=== PATIENT | male | born 1965 | race Hispanic/Latino ===

== ENCOUNTER 2017-11-20 23:21 | Inpatient (IN) | payer MEDICAID ==
[2017-11-20 23:33] VITALS: BMI 24.0
--- NOTE | 2017-11-20 23:39 | ED PDOC ---
Arrival/HPI - General Chief Complaint: Psychiatric Evaluation Time Seen by Provider: 11/20/17 23:34 Historian: Patient - History of Present Illness Narrative History of Present Illness (Text): 11/20/17 23:37 52 year old male, whose past medical history includes bipolar disorder/ depression, presents to the emergency department for transfer from [facility] for psych admission. Patient denies any somatic complaints. Patient denies any suicidal ideation or homicidal ideation currently. Patient denies any fever, chills, chest pain, shortness of breath, nausea, vomiting, diarrhea, urinary symptoms, back pain, neck pain, headache, dizziness, or any other complaints. Symptom Onset: Gradual Activities at Onset: Light Context: Other (Transfer) Past Medical History - Provider Review Nursing Documentation Reviewed: Yes - Infectious Disease Hx of Infectious Diseases: None Family/Social History - Physician Review Nursing Documentation Reviewed: Yes Family/Social History: No Known Family HX Allergies/Home Meds Allergies/Adverse Reactions: Allergies chlorpromazine [From Thorazine] Adverse Reaction (Verified 11/20/17 23:39) SHORTNESS OF BREATH haloperidol [From Haldol] Adverse Reaction (Verified 11/20/17 23:39) RASH risperidone [From Risperdal] Adverse Reaction (Verified 11/20/17 23:39) RASH Home Medications: Home Meds Medication Instructions Recorded Confirmed Unobtainable 11/20/17 11/20/17 Review of Systems - Physician Review All systems were reviewed & negative as marked: Yes - Review of Systems Constitutional: absent: Fevers, Other (Chills) Respiratory: absent: SOB Cardiovascular: absent: Chest Pain Musculoskeletal: absent: Back Pain, Neck Pain Neurological: absent: Headache, Dizziness Psychiatric: absent: Suicidal Ideation (homicidal Ideation) Physical Exam Vital Signs Reviewed: Yes Vital Signs Temp Pulse Resp BP Pulse Ox 11/20/17 23:34 98.0 F 89 18 110/67 98 11/20/17 23:33 98.3 F 79 18 110/67 95 Temperature: Afebrile Blood Pressure: Normal Pulse: Regular Respiratory Rate: Normal Appearance: Positive for: Well-Appearing, Non-Toxic, Comfortable Pain Distress: None Mental Status: Positive for: Alert and Oriented X 3 - Systems Exam Head: Present: Atraumatic, Normocephalic Pupils: Present: PERRL Extroacular Muscles: Present: EOMI Conjunctiva: Present: Normal Mouth: Present: Moist Mucous Membranes Neck: Present: Normal Range of Motion Respiratory/Chest: Present: Clear to Auscultation, Good Air Exchange. No: Respiratory Distress, Accessory Muscle Use Cardiovascular: Present: Regular Rate and Rhythm, Normal S1, S2. No: Murmurs Abdomen: No: Tenderness, Distention, Peritoneal Signs Back: Present: Normal Inspection Upper Extremity: Present: Normal Inspection. No: Cyanosis, Edema Lower Extremity: Present: Normal Inspection. No: Edema Neurological: Present: GCS=15, CN II-XII Intact, Speech Normal Skin: Present: Warm, Dry, Normal Color. No: Rashes Psychiatric: Present: Alert, Oriented x 3, Normal Insight, Normal Concentration Medical Decision Making ED Course and Treatment: 11/20/17 23:44 Impression: 52 year old male presents for transfer from [facility] for psych admission. Plan: -- ED Admission -- Reassess and disposition Progress Notes: Patient accepted to psych floor. - Scribe Statement The provider has reviewed the documentation as recorded by the Dorisibe Teresita Bergeron Provider Scribe Attestation: All medical record entries made by the Scribe were at my direction and personally dictated by me. I have reviewed the chart and agree that the record accurately reflects my personal performance of the history, physical exam, medical decision making, and the department course for this patient. I have also personally directed, reviewed, and agree with the discharge instructions and disposition. Disposition/Present on Arrival - Present on Arrival Any Indicators Present on Arrival: No History of DVT/PE: No History of Uncontrolled Diabetes: No Urinary Catheter: No History of Decub. Ulcer: No History Surgical Site Infection Following: None - Disposition Have Diagnosis and Disposition been Completed?: Yes Diagnosis: Depression, Suicidal ideation Disposition: HOSPITALIZED Disposition Time: 23:53 Condition: STABLE Forms: [employer] (Uzbek)
[2017-11-21 00:24] VITALS: O2SAT 100
--- NOTE | 2017-11-21 04:29 | PCM.BM ---
<Diamond Keene - Last Filed: 11/21/17 04:28> Treatment Plan Problems - Problems identified on initial assessmt suicidal ideation Date Initiated: 11/21/17 Time Initiated: 00:40 Assessment reference: NA Status: Active <MandielilaemilylucretiaGiorgiRekha Kendra - Last Filed: 11/21/17 08:05> - Diagnosis (1) Schizoaffective disorder Status: Acute Interventions: 11/21/17 08:05 Psychoeducation/psychotherapy Psychopharmacology/adjustment of medications as needed/ monitoring possible side effects Evaluate pt on daily basis Compliance with medications and follow up appointments Long acting medication if pt is noncompliant with pill form Suicide and homicide risk assessment and prevention, coping strategies, safety plan Relapse prevention Reduction of symptoms Improve functional status Possible assertive community treatment Cognitive behavioral therapy Family involvement Possible social skill training as outpatient (2) Polysubstance abuse Status: Acute Interventions: 11/21/17 08:05 Monitoring withdrawal symptoms Medical detoxification Pharmacotherapy for alcohol/benzos/opioid dependence Maintaining sobriety Relapse prevention Possible rehabilitation Motivational interviewing 12-step programs: AA meetings
[2017-11-21 09:00] LABS: BASO # 0.05 K/mm3 (0.0-2.0); BASO % 0.9 % (0.0-3.0); EOS # 0.3 (0.0-0.7); EOS % 5.9 % (1.5-5.0); GRAN # 2.32 (1.4-6.5); GRAN % 40.4 % (50.0-68.0); LYMPH # 2.7 (1.2-3.4); LYMPH % 47.1 % (22.0-35.0); MEAN CORPUSCULAR HEMOGLOBIN 31.7 pg (25.0-35.0); MEAN CORPUSCULAR HGB CONC 33.3 g/dl (31.0-37.0); MEAN PLATELET VOLUME 10.4 fl (7.0-11.0); MONO # 0.3 (0.1-0.6); MONO % 5.7 % (1.0-6.0); RBC 4.42 10^6/uL (3.5-6.1); RED CELL DISTRIBUTION WIDTH 13.2 % (11.5-14.5); WHITE BLOOD COUNT 5.8 10^3/ul (4.5-11.0)
[2017-11-21 09:05] LABS: BLOOD UREA NITROGEN 11 mg/dL (7-21); CALCIUM 9.9 mg/dL (8.4-10.5); GFR NON-AFRICAN AMERICAN > 60
--- NOTE | 2017-11-21 09:34 | PCM.PSYCH ---
Initial Psychiatric Evaluation - Initial Psychiatric Evaluation Type of Admission: Voluntary Legal Status: Capacity (Patient has capacity to sign consent for treatment) Chief Complaint (in patient's own words): "my nephew , I was feeling very depressed, I thought to jump in front of the care, I've got scared and brought myself to the hospital, I did not take medications because of insurance confusion I thought that I have no coverage, but now I've got to know that my medicaid is active...." Patient's Reaction to Hospitalization: pt was transferred from the [facility] at [place] for evaluation and stabilization of depressive symptoms, possible suicidal ideation with the plan to jump in front of the car, pt was willing to get treatment, voluntary admitted. History of Present Illness and Precipitating Events: Shortly pt is 52 year old Val Male, whose past medical history includes bipolar disorder/depression, polysubstance abuse and dependence, h/o multiple psychiatric admissions, multiple suicidal attempts, pt also has h/o polysubstance abuse and dependence, h/o noncompliance with medications and follow up appts, pt currently homeless, multiple medical issues including HIV, Hep C, was transferred from the [facility] at [place] for evaluation of depressive symptoms, inability to function, pt was feeling hopeless and helpless , was not taking meds since October 29 due to insurance problems, pt expressed thoughts of harming self with the plan to walk into the traffic or jump in front of the car, pt requires further evaluation/stabilization/observation in psychiatric inpatient unit, medication resumption. Transfer from [facility] was uneventful. pt was seen and examined, discussed with RNs, chart reviewed, labs reviewed, vitals reviewed. Medical/ID consult called because pt said that he wants to be resumed on his HIV medications. pt was seen at the treatment team room, pt presented with acceptable personal hygiene, looks younger than chronological age, good ADLs. pt said he was noncompliant with meds since 2017 due to insurance confusion. pt said as a result he became very depressed, hopeless and helpless, pt said he started to hear "voices in my head"in [facility] pt said that voices are telling him to end up his life, during denied paranoia "I relapsed on drugs because I wanted to feel better", pt said that he was snorting and shooting IV of Heroin 5 bags a day and Cocaine 1gramm a day, alcohol 6packs of beer a day, pt said last use of drugs was , November 18. pt said "I feel okay now, no withdrawals, I was detoxed in other hospital", pt said he smokes about a pack a day, counseling provided, nicotine patch offered, pt refused. pt also uses marihuana daily. pt said he had suicidal thoughts that is why he came to the hospital, looking for help. pt said the main reason for his symptoms is "I lost about 13 people since 1998" , last straw was my nephew last winter, he of throat cancer. pt said that he had been diagnosed with "panic disorder, anxiety, bipolar and voices", h/o substance abuse. pt did not want to disclose any h/o abuse. Past psychiatric h/o: pt reported multiple suicidal attemtps since 1979, pt has h/o jumped from the window, ending up breaking his leg and tried to walk throught traffic as well. pt was responding well to Seroquel "100mg at the morning and 200mg at night", and "remeron was 15mg". h/o multiple detoxes and rehabs but "always relapse". family h/o: "I was adopted at age of 5days", pt said his adoptive family was "very nice to me". pt said that he never knew the blood relatives. Labs [facility]: WBC :14.2, Hb: 13.1, AST85, ALT 89. 11/21/17 08:30 11/21/17 08:30 Lab Results 11/21/17 08:30: WBC 5.8, RBC 4.42, Hgb 14.0, Hct 42.0, MCV 95.0, MCH 31.7, MCHC 33.3, RDW 13.2, Plt Count 340, MPV 10.4, Gran % 40.4 L, Lymph % (Auto) 47.1 H, [place] % (Auto) 5.7, Eos % (Auto) 5.9 H, Baso % (Auto) 0.9, Gran # 2.32, Lymph # ( Auto) 2.7, [place] # (Auto) 0.3, Eos # (Auto) 0.3, Baso # (Auto) 0.05 11/21/17 08:30: Sodium 142, Potassium 4.3, Chloride 108 H, Carbon Dioxide 25, Anion Gap 13, BUN 11, Creatinine 1.1, Est GFR ( Amer) > 60, Est GFR (Non- Af Amer) > 60, Random Glucose 142 H, Calcium 9.9 Vital Signs Temp Pulse Resp BP Pulse Ox 11/21/17 01:57 98.0 F 93 H 18 120/90 11/21/17 00:10 98 F 88 18 112/70 100 11/20/17 23:34 98.0 F 89 18 110/67 98 11/20/17 23:33 98.3 F 79 18 110/67 95 Current Medications: Active Medications Generic Name Dose Route Start Last Admin Trade Name Freq PRN Reason Stop Dose Admin Acetaminophen 650 mg 11/21/17 01:47 Tylenol 325mg Tab PO Q4H PRN Pain, Mild (1-3) Lorazepam 2 mg 11/21/17 01:21 Ativan PO Q6 PRN Agitation Protocol Lorazepam 2 mg 11/21/17 01:25 Ativan IM Q6H PRN Agitation Protocol Mirtazapine 15 mg 11/21/17 22:00 Remeron PO HS BROOK Quetiapine Fumarate 100 mg 11/21/17 22:00 Seroquel PO HS BROOK Protocol Ziprasidone 20 mg 11/21/17 01:10 Geodon Cap PO Q6 PRN Agitation Protocol Ziprasidone 20 mg 11/21/17 01:26 Geodon Inj IM Q6 PRN Agitation Protocol Past Psychiatric History - Past Psychiatric History Previous Treatment History: Inpatient Prior Professional Help: see HPI Prior Psychiatric Treatment: see HPI At what hospital: see HPI Duration: see HPI Nature of Treatment: see HPI Explanation of prior treatment: see HPI History of Abuse: see HPI History of ETOH/Drug Use: see HPI History of Family Illness: see HPI Pertinent Medical Hx (Current Medical&Sleep Prob, Allergies): Allergies Allergy/AdvReac Type Severity Reaction Status Date / Time chlorpromazine AdvReac SHORTNESS Verified 11/20/17 23:39 [From Thorazine] OF BREATH haloperidol [From Haldol] AdvReac RASH Verified 11/20/17 23:39 risperidone [From Risperdal] AdvReac RASH Verified 11/20/17 23:39 Unobtainable 11/20/17 Review of Systems - Review of Systems Systems not reviewed;Unavailable: Acuity of Condition - EENT Eyes: As Per HPI Ears: As Per HPI Nose/Mouth/Throat: As Per HPI - Cardiovascular Cardiovascular: As Per HPI - Respiratory Respiratory: As Per HPI - Gastrointestinal Gastrointestinal: As Per HPI - Genitourinary Genitourinary: As Per HPI - Reproductive: Male Reproductive:Male: As Per HPI - Musculoskeletal Musculoskeletal: As Par HPI - Integumentary Integumentary: As Per HPI - Neurological Neurological: As Per HPI - Psychiatric Psychiatric: As Per HPI - Endocrine Endocrine: As Per HPI - Hematologic/Lymphatic Hematologic: As Per HPI Mental Status Examination - Personal Presentation Personal Presentation: Looks younger than stated age - Affect Affect: Constricted - Motor Activity Motor Activity: Calm - Reliability in Providing Information Reliability in Providing Information: Fair - Speech Speech: Organized - Mood Mood: Depressed, Anxious - Formal Thought Process Formal Thought Process: Hallucinations (but could be his own thoughts) - Hallucinations/Delusions Hallucinations: Auditory (self reported, but thought process is goal directed, no signs of psychosis) - Obsessions/Compulsions Obsessions: None Compulsions: None - Cognitive Functions Orientation: Person, Place Sensorium: Alert Attention/Concentration: Easily distracted Abstract Thinking: [place] Estimate of Intelligence: Average Judgement: Intact, as evidence by: Insight regarding need for hospitalization - Risk Risk: Withdrawal, Diminished functioning - Strength & Assets Inventory Strength & Assets Inventory: Employment history (h/o working as a chief-cooker) , Cooperative, Other (good insight, looking for help, no acute psychosis) - Limitations Limitations: Other (multiple medical issues, active use drugs, homelessness, mental illness, h/o sucididal attempts) DSM 5 DX - DSM 5 DSM 5 Diagnosis: as per h/obipolar disorder r/o MDD recurrent, severe with psychosis opioid use disorder marijuana use disorder alcohol use disorder - Recommended/Plan of Treatment Treatment Recommendations and Plan of Treatment: Milieu/structure/supportive therapy Medical consult as well as ID consult initiated consultation for discharge plan and social issues Med management seroquel resumed remeron resumed PRN meds MVI, thiamine and folic acid initiated Family involvement Follow up on labs Will monitor closely Pt was educated about risk/benefits and alternatives of medications, coping strategies (safety plan, suicide prevention), relapse prevention, importance of follow up with psychiatrist and therapist, stay away from drugs/alcohol/smoking Projected ELOS: 7days Prognosis: guarded Discharge Plan and Discharge Criteria: Pt will be not depressed or manic, will be more hopeful, will be not psychotic or anxious, will be not having thoughts of harming self or others, will be tolerating medications well, will not have major side effects, will be able to function, will not pose threat to self or others. - Smoking Cessation Smoking Cessation Initiated: No Reason for not providing: offered, but pt refused
[2017-11-21] MEDS: Multivitamin With Minerals Tab PO SCH (12:15)
--- NOTE | 2017-11-21 22:26 | CON ---
DATE: 11/21/2017 The patient seen in the Psychiatric Floor. CHIEF COMPLAINT: Positive HIV and positive hep C. HISTORY OF PRESENT ILLNESS: This is a 52-year-old male with history of intravenous drug abuse and history of positive HIV who is followed by Dr. Burns in [facility] in [place] [facility]. he is on undetectable viral load and T-cells are 700. He also has a hepatitis C, who is not being treated for his hepatitis C, he was admitted to the Psychiatric Floor with diagnosis of bipolar disorder and questionable suicidal ideation. REVIEW OF SYSTEMS: At this point, a 12-point review of systems is performed and patient has no fevers, no headaches, no nausea or vomiting. PAST MEDICAL HISTORY: Significant for HIV, hepatitis C, bipolar and substance abuse. PAST SURGICAL HISTORY: Noncontributory. ALLERGIES: THE PATIENT HAS ALLERGIES TO CHLORPROMAZINE, HALDOL AND RISPERIDONE. MEDICATIONS: HIV medications include Biktarvy. PHYSICAL EXAMINATION GENERAL: He is in bed. VITAL SIGNS: He had a temperature of 98, blood pressure is 120/70, respiratory rate of 18. HEENT: Unremarkable. NECK: Supple. LUNGS: Decreased breath sounds. HEART: Normal S1, S2. ABDOMEN: Soft, nontender. No organomegaly. No rebound. LABORATORY EXAMINATION: Reveals white count of 5.8. Hemoglobin of 14 and chemistries are noted with glucose of 142. ASSESSMENT: This is a 52-year-old male with intravenous drug abuse, human immunodeficiency virus, and hepatitis C. #1 is Human immunodeficiency virus, here with suicidal ideation and bipolar and hepatitis C. Would continue at [facility] and follow up at [facility] with Dr. Eric Burns and should have hepatitis C workup and treatment. Derian Monreal MD
[2017-11-22 03:49] LABS: PH,URINE 8.5 (4.7-8.0); URINE BILIRUBIN NEGATIVE (NEGATIVE); URINE BLOOD NEGATIVE (NEGATIVE); URINE GLUCOSE (UA) NEGATIVE (NEGATIVE); URINE LEUKOCYTE ESTERASE NEGATIVE Leu/uL (NEGATIVE); URINE PROTEIN TRACE mg/dL (<30 mg/dL)
[2017-11-22 03:51] LABS: URINE APPEARANCE CLEAR (CLEAR); URINE COLOR YELLOW (YELLOW)
[2017-11-22 04:00] LABS: URINE EPITHELIAL CELLS 0 - 2 /hpf (0-5); URINE TRIPLE PHOSPHATE CRYSTAL OCC /hpf; URINE WBC 0 - 2 /hpf (0-6)
--- NOTE | 2017-11-22 06:44 | CP.PCM.CON ---
History of Present Illness - History of Present Illness History of Present Illness: Medical Consult note for Hospitalist Dr. Elaina Hope PGY2 52 year old male, whose past medical history includes bipolar disorder/ depression, presents to the emergency department for transfer from [facility]. As per patient he had recent suicidal ideation with a plan to jump in front of a car due to his nephew recently passing away. Patient states at the time he couldn't take his medications due to insurance issues. Medicine was consulted due to patient's history of HIV and Hep C. Patient was evaluated and offered no complaints. As per patient, he is compliant with his HIV medications and has an undetectable viral load. In regards to his Hepatitis C, it has not been treated as of yet because patient is still waiting to complete his series of hepatitis B vaccinations. However once those are completed he will begin treatment for hepatitis C. 12-point ROS obtained, otherwise neg as per patient. Past Patient History - Infectious Disease Hx of Infectious Diseases: None - Past Social History Smoking Status: Light Smoker < 10 Cigarettes Daily - HEMATOLOGICAL/ONCOLOGICAL Hx Hepatitis C: Yes Hx Human Immunodeficiency Virus (HIV): Yes - PSYCHIATRIC Hx Bipolar Disorder: Yes Hx Substance Use: Yes - SURGICAL HISTORY Hx Surgeries: No - ANESTHESIA Hx Anesthesia: No Meds Allergies/Adverse Reactions: Allergies Allergy/AdvReac Type Severity Reaction Status Date / Time chlorpromazine AdvReac SHORTNESS Verified 11/20/17 23:39 [From Thorazine] OF BREATH haloperidol [From Haldol] AdvReac RASH Verified 11/20/17 23:39 risperidone [From Risperdal] AdvReac RASH Verified 11/20/17 23:39 - Medications Medications: Current Medications Acetaminophen (Tylenol 325mg Tab) 650 mg PO Q4H PRN PRN Reason: Pain, Mild (1-3) Clonidine HCl (Catapres) 0.1 mg PO BID PRN PRN Reason: opioid withdrawals Last Admin: 11/21/17 22:10 Dose: 0.1 mg Folic Acid (Folic Acid) 1 mg PO DAILY BROOK Last Admin: 11/21/17 12:16 Dose: 1 mg Lorazepam (Ativan) 2 mg PO Q6 PRN; Protocol PRN Reason: Agitation Last Admin: 11/21/17 22:11 Dose: 2 mg Lorazepam (Ativan) 2 mg IM Q6H PRN; Protocol PRN Reason: Agitation Mirtazapine (Remeron) 15 mg PO HS ON LICENSE OF [facility] Last Admin: 11/21/17 22:11 Dose: 15 mg Multivitamins/Minerals (Therapeutic-M Tab) 1 tab PO DAILY ON LICENSE OF [facility] Last Admin: 11/21/17 12:15 Dose: 1 tab Quetiapine Fumarate (Seroquel) 100 mg PO HS ON LICENSE OF [facility] PRN Reason: Protocol Last Admin: 11/21/17 22:11 Dose: 100 mg Thiamine HCl (Vitamin B1 Tab) 100 mg PO DAILY ON LICENSE OF [facility] Last Admin: 11/21/17 12:16 Dose: 100 mg Tramadol HCl (Ultram) 50 mg PO TID PRN PRN Reason: severe pain >=8/10 Ziprasidone (Geodon Cap) 20 mg PO Q6 PRN; Protocol PRN Reason: Agitation Ziprasidone (Geodon Inj) 20 mg IM Q6 PRN; Protocol PRN Reason: Agitation Physical Exam - Constitutional Appears: Non-toxic - Head Exam Head Exam: ATRAUMATIC, NORMAL INSPECTION, NORMOCEPHALIC - Eye Exam Eye Exam: EOMI, Normal appearance - ENT Exam ENT Exam: Mucous Membranes Moist - Neck Exam Neck exam: Positive for: Normal Inspection - Respiratory Exam Respiratory Exam: Clear to Auscultation Bilateral, NORMAL BREATHING PATTERN - Cardiovascular Exam Cardiovascular Exam: REGULAR RHYTHM, +S1, +S2 - GI/Abdominal Exam GI & Abdominal Exam: Normal Bowel Sounds, Soft - Extremities Exam Extremities exam: Positive for: normal inspection - Back Exam Back exam: NORMAL INSPECTION - Neurological Exam Neurological exam: Alert, CN II-XII Intact, Oriented x3 - Psychiatric Exam Psychiatric exam: Normal Affect, Normal Mood - Skin Skin Exam: Intact, Normal Color, Warm Results - Vital Signs Recent Vital Signs: Last Vital Signs Temp 98.0 F 11/21/17 01:57 Pulse 65 11/21/17 22:10 Resp 18 11/21/17 01:57 BP 96/66 L 11/21/17 22:10 Pulse Ox 100 11/21/17 00:10 - Labs Result Diagrams: 11/21/17 08:30 11/21/17 08:30 Labs: Laboratory Results - last 24 hr 11/21/17 11/21/17 11/21/17 07:00 08:30 08:30 WBC 5.8 RBC 4.42 Hgb 14.0 Hct 42.0 MCV 95.0 MCH 31.7 MCHC 33.3 RDW 13.2 Plt Count 340 MPV 10.4 Gran % 40.4 L Lymph % (Auto) 47.1 H [place] % (Auto) 5.7 Eos % (Auto) 5.9 H Baso % (Auto) 0.9 Gran # 2.32 Lymph # (Auto) 2.7 Craig # (Auto) 0.3 Eos # (Auto) 0.3 Baso # (Auto) 0.05 Sodium 142 Potassium 4.3 Chloride 108 H Carbon Dioxide 25 Anion Gap 13 BUN 11 Creatinine 1.1 Est GFR ( Amer) > 60 Est GFR (Non-Af Amer) > 60 Random Glucose 142 H Calcium 9.9 TSH 3rd Generation 1.70 Urine Color Urine Appearance Urine pH Ur Specific [place] Urine Protein Urine Glucose (UA) Urine Ketones Urine Blood Urine Nitrate Urine Bilirubin Urine Urobilinogen Ur Leukocyte Esterase Urine RBC Urine WBC Ur Epithelial Cells Triple Phos Crystals 11/22/17 00:38 WBC RBC Hgb Hct MCV MCH MCHC RDW Plt Count MPV Gran % Lymph % (Auto) [place] % (Auto) Eos % (Auto) Baso % (Auto) Gran # Lymph # (Auto) [place] # (Auto) Eos # (Auto) Baso # (Auto) Sodium Potassium Chloride Carbon Dioxide Anion Gap BUN Creatinine Est GFR ( Amer) Est GFR (Non-Af Amer) Random Glucose Calcium TSH 3rd Generation Urine Color Yellow Urine Appearance Clear Urine pH 8.5 Ur Specific [place] 1.015 Urine Protein Trace H Urine Glucose (UA) Negative Urine Ketones Trace H Urine Blood Negative Urine Nitrate Negative Urine Bilirubin Negative Urine Urobilinogen 1.0 H Ur Leukocyte Esterase Negative Urine RBC 1 - 3 Urine WBC 0 - 2 Ur Epithelial Cells 0 - 2 Triple Phos Crystals Occ Assessment & Plan - Assessment and Plan (Free Text) Assessment: 52 M with history of HIV and hepatitis C presenting with depression and past suicidal ideation. Plan: HIV -Continue medical managament with HAART therapy -Further management as per ID Hepatitis C -Liver enzymes within normal range as [facility] -Patient is cleared from a medical standpoint Case discussed and reviewed with Dr. Delaney
[2017-11-22 07:14] VITALS: RESP 20
--- NOTE | 2017-11-22 08:20 | PCM.PSYCH ---
Initial Psychiatric Evaluation - Initial Psychiatric Evaluation Type of Admission: Voluntary Legal Status: Capacity (Patient has capacity to sign consent for treatment) Chief Complaint (in patient's own words): "The voices are mas and telling me to kill people" Current Medications: Active Medications Generic Name Dose Route Start Last Admin Trade Name Freq PRN Reason Stop Dose Admin Acetaminophen 650 mg 11/21/17 01:47 Tylenol 325mg Tab PO Q4H PRN Pain, Mild (1-3) Clonidine HCl 0.1 mg 11/21/17 08:03 11/21/17 22:10 Catapres PO 0.1 mg BID PRN Administration opioid withdrawals Folic Acid 1 mg 11/21/17 09:45 11/21/17 12:16 Folic Acid PO 1 mg DAILY BROOK Administration Lorazepam 2 mg 11/21/17 01:21 11/21/17 22:11 Ativan PO 2 mg Q6 PRN Administration Agitation Protocol Lorazepam 2 mg 11/21/17 01:25 Ativan IM Q6H PRN Agitation Protocol Mirtazapine 15 mg 11/21/17 22:00 11/21/17 22:11 Remeron PO 15 mg HS BROOK Administration Multivitamins/Minerals 1 tab 11/21/17 09:45 11/21/17 12:15 Therapeutic-M Tab PO 1 tab DAILY BROOK Administration Quetiapine Fumarate 100 mg 11/21/17 22:00 11/21/17 22:11 Seroquel PO 100 mg HS BROOK Administration Protocol Thiamine HCl 100 mg 11/21/17 09:45 11/21/17 12:16 Vitamin B1 Tab PO 100 mg DAILY BROOK Administration Tramadol HCl 50 mg 11/21/17 08:03 Ultram PO TID PRN severe pain >=8/10 Ziprasidone 20 mg 11/21/17 01:10 Geodon Cap PO Q6 PRN Agitation Protocol Ziprasidone 20 mg 11/21/17 01:26 Geodon Inj IM Q6 PRN Agitation Protocol Past Psychiatric History - Past Psychiatric History Previous Treatment History: Inpatient Prior Professional Help: see HPI Prior Psychiatric Treatment: see HPI At what hospital: see HPI Duration: see HPI Nature of Treatment: see HPI Explanation of prior treatment: see HPI Pertinent Medical Hx (Current Medical&Sleep Prob, Allergies): Allergies Allergy/AdvReac Type Severity Reaction Status Date / Time chlorpromazine AdvReac SHORTNESS Verified 11/20/17 23:39 [From Thorazine] OF BREATH haloperidol [From Haldol] AdvReac RASH Verified 11/20/17 23:39 risperidone [From Risperdal] AdvReac RASH Verified 11/20/17 23:39 No Known Home Med 11/21/17
[2017-11-22] MEDS: Multivitamin With Minerals Tab PO SCH (09:37)
--- NOTE | 2017-11-22 16:09 | PCM.PYCHPN ---
Psychiatric Progress Note - Psychiatric Progress Note Patient seen today, length of contact: 30min Patient Chief Complaint: "I feel better" Problems Identified/Issues Discussed: Suicide/ homicide prevention, past psychiatric h/o, current psychiatric symptoms , medical problems, risk/benefits and alternatives of medications, medications compliance, coping strategies, substance abuse h/o, relapse prevention, importance of follow up with psychiatrist and therapist, discharge plan. Medical Problems: see HPI HIV Hep C Diagnostic Results: 11/21/17 08:30 11/21/17 08:30 Lab Results 11/22/17 00:38: Urine Color Yellow, Urine Appearance Clear, Urine pH 8.5, Ur Specific [place] 1.015, Urine Protein Trace H, Urine Glucose (UA) Negative, Urine Ketones Trace H, Urine Blood Negative, Urine Nitrate Negative, Urine Bilirubin Negative, Urine Urobilinogen 1.0 H, Ur Leukocyte Esterase Negative, Urine RBC 1 - 3, Urine WBC 0 - 2, Ur Epithelial Cells 0 - 2, Triple Phos Crystals Occ 11/21/17 08:30: WBC 5.8, RBC 4.42, Hgb 14.0, Hct 42.0, MCV 95.0, MCH 31.7, MCHC 33.3, RDW 13.2, Plt Count 340, MPV 10.4, Gran % 40.4 L, Lymph % (Auto) 47.1 H, [place] % (Auto) 5.7, Eos % (Auto) 5.9 H, Baso % (Auto) 0.9, Gran # 2.32, Lymph # ( Auto) 2.7, [place] # (Auto) 0.3, Eos # (Auto) 0.3, Baso # (Auto) 0.05 11/21/17 08:30: Sodium 142, Potassium 4.3, Chloride 108 H, Carbon Dioxide 25, Anion Gap 13, BUN 11, Creatinine 1.1, Est GFR ( Amer) > 60, Est GFR (Non- Af Amer) > 60, Random Glucose 142 H, Calcium 9.9 11/21/17 07:00: TSH 3rd Generation 1.70 Vital Signs Temp Pulse Resp BP Pulse Ox 11/22/17 07:13 98.3 F 62 20 106/71 11/21/17 22:10 65 96/66 L 11/21/17 12:15 78 125/82 11/21/17 01:57 98.0 F 93 H 18 120/90 11/21/17 00:10 98 F 88 18 112/70 100 11/20/17 23:34 98.0 F 89 18 110/67 98 11/20/17 23:33 98.3 F 79 18 110/67 95 DSM 5 Symptoms Update: Shortly pt is 52 year old Val Male, whose past medical history includes bipolar disorder/depression, polysubstance abuse and dependence, h/o multiple psychiatric admissions, multiple suicidal attempts, pt also has h/o polysubstance abuse and dependence, h/o noncompliance with medications and follow up appts, pt currently homeless, multiple medical issues including HIV, Hep C, was transferred from the [facility] at [place] for evaluation of depressive symptoms, inability to function, pt was feeling hopeless and helpless , was not taking meds since October 29 due to insurance problems, pt expressed thoughts of harming self with the plan to walk into the traffic or jump in front of the car, pt requires further evaluation/stabilization/observation in psychiatric inpatient unit, medication resumption. Transfer from [facility] was uneventful. pt was seen and examined at the treatment team meeting. pt said he feels better. as per ID recommendation pt's Biktarvy needs to be resumed, it is nonformulary in the hospital, [place] in [place] [facility]ication will be delivered. pt so far improving, but still flat affect, pt seems to be depressed, but with some improvement. no agitation or aggression. as per staff pt is more visible in the unit but anxious. all meds resumed. Impression: DSM 5 Diagnosis: as per h/obipolar disorder r/o MDD recurrent, severe with psychosis opioid use disorder marijuana use disorder alcohol use disorder Medication Change: Yes (seroquel increased) Medical Record Reviewed: Yes Consults ordered or reviewed: medical consult appreciated Infectious disease consult appreciated Mental Status Examination - Cognitive Function Orientation: Person, Place Memory: Impaired Attention: Poor Concentration: Poor Association: WNL Fund of Knowledge: WNL - Mood Mood: Depressed, Anxious - Affect Affect: Constricted - Formal Thought Process Formal Thought Process: Hallucinations (but could be his own thoughts) - Suicidal Ideation Suicidal Ideation: No - Homicidal Ideation Homicidal Ideation: No Goal/Treatment Plan - Goal/Treatment Plan Need for Continued Stay: Remain at risks for inpatient hospitalization, Severe depression anxiety, Discharge may exacerbated symptoms, Severe functional impairment Progress Toward Problem(s) and Goals/Treatment Plan: Milieu/structure/supportive therapy Medical consult as well as ID consult initiated consultation for discharge plan and social issues Med management seroquel 100 mg twice a day resumed remeron 15 mg at the nighttime resumed PRN meds MVI, thiamine and folic acid initiated Family involvement Follow up on labs Will monitor closely Pt was educated about risk/benefits and alternatives of medications, coping strategies (safety plan, suicide prevention), relapse prevention, importance of follow up with psychiatrist and therapist, stay away from drugs/alcohol/smoking Estimated Date of D/C: 11/25/17
[2017-11-23 07:13] VITALS: BP 107/76; PULSE 64; TEMP 97.6
[2017-11-23] MEDS: Multivitamin With Minerals Tab PO SCH (09:21)
--- NOTE | 2017-11-24 17:59 | PCM.PYCHDC ---
Mental Status Examination - Mental Status Examination Orientation: Person, Place, Situation, Time Memory: Intact Mood: Neutral Affect: Broad (and mood congruent) Speech: Appropriate Attention: WNL Concentration: WNL Association: WNL Fund of Knowledge: WNL Formal Thought Process: No Impairment Description of patient's judgement and insight: Pt has improved insight into mental and medical illness, pt was compliant with medications and unit rules and regulations, pt was going to groups, was calm, cooperative, socially appropriate, no behavioral incidents, no agitation, no aggression. Psychotic Thoughts and Behaviors: Pt denied v/a/t hallucinations, denied paranoid ideations, pt does not appear to be psychotic, and thought process is goal directed. Suicidal Ideation: No Current Homicidal Ideation?: No Plan: pt adamantly denied thoughts of harming self or others denied intent or plan. Discharge Summary - Discharge Note Reason for Hospitalization: pt was transferred from the [facility] at [place] for evaluation and stabilization of depressive symptoms, possible suicidal ideation with the plan to jump in front of the car, pt was willing to get treatment, voluntary admitted. Psychiatric History (includes Medical, Family, Personal Hx): see HPI Laboratory Data: 11/21/17 08:30 11/21/17 08:30 Lab Results 11/22/17 00:38: Urine Color Yellow, Urine Appearance Clear, Urine pH 8.5, Ur Specific [place] 1.015, Urine Protein Trace H, Urine Glucose (UA) Negative, Urine Ketones Trace H, Urine Blood Negative, Urine Nitrate Negative, Urine Bilirubin Negative, Urine Urobilinogen 1.0 H, Ur Leukocyte Esterase Negative, Urine RBC 1 - 3, Urine WBC 0 - 2, Ur Epithelial Cells 0 - 2, Triple Phos Crystals Occ 11/21/17 08:30: WBC 5.8, RBC 4.42, Hgb 14.0, Hct 42.0, MCV 95.0, MCH 31.7, MCHC 33.3, RDW 13.2, Plt Count 340, MPV 10.4, Gran % 40.4 L, Lymph % (Auto) 47.1 H, [place] % (Auto) 5.7, Eos % (Auto) 5.9 H, Baso % (Auto) 0.9, Gran # 2.32, Lymph # (Auto) 2.7, [place] # (Auto) 0.3, Eos # (Auto) 0.3, Baso # (Auto) 0.05 11/21/17 08:30: Sodium 142, Potassium 4.3, Chloride 108 H, Carbon Dioxide 25, Anion Gap 13, BUN 11, Creatinine 1.1, Est GFR ( Amer) > 60, Est GFR (Non- Af Amer) > 60, Random Glucose 142 H, Calcium 9.9 11/21/17 07:00: TSH 3rd Generation 1.70 Vital Signs Temp Pulse Resp BP Pulse Ox 11/23/17 07:12 97.6 F 64 20 107/76 11/22/17 16:00 68 122/85 11/22/17 07:13 98.3 F 62 20 106/71 11/21/17 22:10 65 96/66 L 11/21/17 12:15 78 125/82 11/21/17 01:57 98.0 F 93 H 18 120/90 11/21/17 00:10 98 F 88 18 112/70 100 11/20/17 23:34 98.0 F 89 18 110/67 98 11/20/17 23:33 98.3 F 79 18 110/67 95 Consultations:: List each consultation separately and include: 1. Reason for request. 2. Findings. 3. Follow-up Consultations: medical consult appreciated Infectious disease consult appreciated Summary of Hospital Course include:: 1. Description of specific treatment plan u tilized for patients during their course of treatmen. 2. Summarize the time- course for resolution of acute symptoms and/or regressed behaviors. 3. Describe issues identified and worked on during hospitalization. 4. Describe medication utilized. 5. Describe medical problems identified and treated. 6. Reassessment of suicide risk Summary of Hospital Course: Shortly pt is 52 year old Val Male, whose past medical history includes bipolar disorder/depression, polysubstance abuse and dependence, h/o multiple psychiatric admissions, multiple suicidal attempts, pt also has h/o polysubstance abuse and dependence, h/o noncompliance with medications and follow up appts, pt currently homeless, multiple medical issues including HIV, Hep C, was transferred from the [facility] at [place] for evaluation of depressive symptoms, inability to function, pt was feeling hopeless and helpless, was not taking meds since October 29 due to insurance problems, pt expressed thoughts of harming self with the plan to walk into the traffic or jump in front of the car, pt requires further evaluation/stabilization/observation in psychiatric inpatient unit, medication resumption. Transfer from [facility] was uneventful. please see admission note for more detailed info. pt said he was feeling very depressed, hopeless and helpless, pt said he started to hear "voices in my head"in [facility] pt said that voices are telling him to end up his life, during denied paranoia "I relapsed on drugs because I wanted to feel better", pt said that he was snorting and shooting IV of Heroin 5 bags a day and Cocaine 1gramm a day, alcohol 6packs of beer a day, pt said last use of drugs was November 18. pt said "I feel okay now, no withdrawals, I was detoxed in other hospital", pt said he smokes about a pack a day, counseling provided, nicotine patch offered, pt refused. pt also uses marihuana daily. pt said he had suicidal thoughts that is why he came to the hospital, looking for help. pt said the main reason for his symptoms is "I lost about 13 people since 1998", last straw was my nephew last winter, he of throat cancer. 11/21/17 08:30 11/21/17 08:30 Lab Results 11/21/17 08:30: WBC 5.8, RBC 4.42, Hgb 14.0, Hct 42.0, MCV 95.0, MCH 31.7, MCHC 33.3, RDW 13.2, Plt Count 340, MPV 10.4, Gran % 40.4 L, Lymph % (Auto) 47.1 H, [place] % (Auto) 5.7, Eos % (Auto) 5.9 H, Baso % (Auto) 0.9, Gran # 2.32, Lymph # (Auto) 2.7, [place] # (Auto) 0.3, Eos # (Auto) 0.3, Baso # (Auto) 0.05 11/21/17 08:30: Sodium 142, Potassium 4.3, Chloride 108 H, Carbon Dioxide 25, Anion Gap 13, BUN 11, Creatinine 1.1, Est GFR ( Amer) > 60, Est GFR (Non- Af Amer) > 60, Random Glucose 142 H, Calcium 9.9 Vital Signs Temp Pulse Resp BP Pulse Ox 09/23/18 01:57 98.0 F 93 H 18 120/90 11/21/17 00:10 98 F 88 18 112/70 100 11/20/17 23:34 98.0 F 89 18 110/67 98 11/20/17 23:33 98.3 F 79 18 110/67 95 pt was stabilized on the following meds: seroquel 100 mg twice a day resumed remeron 15 mg at the nighttime resumed Patient tolerated medications well, no side effects observed or reported, aims 0, no EPS. he shouldn't was seen by medical team as well as infectious diseases team, metastases resumed. Patient was compliant with the medications, no aggression or agitation, had good appetite and sleep, was attending groups. Patient wanted to be discharged yesterday, patient wants to go to the nursing home, patient reported that he feels much better, patient reported that she was detoxified from the drugs, patient reports that he has future oriented plans, patient denied feeling depressed, patient denied feeling anxious, patient presented well and deemed ready for discharge. At the time of the discharge pt denied been depressed, denied thoughts of harming self or others, denied psychotic symptoms, and pt does not appeared to be psychotic, denied been anxious, pt is not in imminent danger to self or others, pt will f/u at [facility] program, information about follow up appointment, time and address provided to the pt, it is patient responsibility to follow up with outpatient clinic, PMD as well as specialists, pt is very knowledgeable about his medical issues and f/u appts. In case pt will need to obtain results of studies pending at discharge pt was provided with contact information of Psychiatric Inpatient unit [phone] as well as Medical Record Department [phone]. Naltrexone treatment not indicated at this time. Counseling about smoking and alcohol cessation provided AA meetings as well as smoking cessation treatment program information was provided by the pt was provided with prescriptions for all of medications (please see medication reconciliation form) Pt was educated about safety plan in case of worsening of symptoms or in case of suicidal or homicidal ideation call 911 or go to the nearest ER, also was e ducated to take meds as prescribed and stay away from drugs, pt verbalized understanding. - Diagnosis (1) Schizoaffective disorder Status: Chronic Priority: High (2) Polysubstance abuse Status: Chronic Priority: High - Final Diagnosis (DSM 5) Condition upon Discharge: IMPROVED Disposition: HOME/ ROUTINE Follow-up Treatment Plan: At the time of the discharge pt denied been depressed, denied thoughts of harming self or others, denied psychotic symptoms, and pt does not appeared to be psychotic, denied been anxious, pt is not in imminent danger to self or others, pt will f/u at [facility] program, information about follow up appointment, time and address provided to the pt, it is patient responsibility to follow up with outpatient clinic, PMD as well as specialists, pt is very knowledgeable about his medical issues and f/u appts. In case pt will need to obtain results of studies pending at discharge pt was provided with contact information of Psychiatric Inpatient unit [phone] as well as Medical Record Department [phone]. Naltrexone treatment not indicated at this time. Counseling about smoking and alcohol cessation provided AA meetings as well as smoking cessation treatment program information was provided by the pt was provided with prescriptions for all of medications (please see medication reconciliation form) Pt was educated about safety plan in case of worsening of symptoms or in case of suicidal or homicidal ideation call 911 or go to the nearest ER, also was educated to take meds as prescribed and stay away from drugs, pt verbalized understanding. Prescriptions/Medication Reconciliation: cloNIDine [Catapres] 0.1 mg PO BID PRN #14 tab PRN Reason: opioid withdrawals Folic Acid 1 mg PO DAILY #14 tab Mirtazapine [Remeron] 15 mg PO HS #14 tab Multimineral/Multivitamin [Therapeutic-M Tab] 1 tab PO DAILY #14 tab QUEtiapine [Seroquel] 100 mg PO AMHS #30 tab - Smoking Cessation Smoking Cessation Medication prescribed: No Reason for not providing: pt refused - Antipsychotic Medications Pt discharged on 2 or more routine antipsychotic medications: No
== END 2017-11-23 12:56 | disposition home or self-care (01) | DRG 430 ==
LOC: ED 23:21 → ERH 23:35 → PSYC 11-21 00:34
PROVIDERS: ADMIT Psychiatry & Neurology Psychiatry; ATTEND Psychiatry & Neurology Psychiatry
DX: F31.9 Bipolar disorder, unspecified (principal); B19.20 Unspecified viral hepatitis C without hepatic coma; R45.851 Suicidal ideations; Z21 Asymptomatic human immunodeficiency virus [HIV] infection status; F12.90 Cannabis use, unspecified, uncomplicated; F10.10 Alcohol abuse, uncomplicated; F17.210 Nicotine dependence, cigarettes, uncomplicated; Z59.0 Homelessness; Z91.14 Patient's other noncompliance with medication regimen